=== PATIENT | male | born 1990 | race Caucasian/White ===

== ENCOUNTER 2016-10-06 15:29 | Emergency (ER) | payer SELFPAY ==
[~2016-10-06] VITALS: Ht 177.8 cm; Wt 109.1 kg
[2016-10-06 15:31] VITALS: BP 157/100
== END 2016-10-06 16:30 | disposition left against medical advice (07) ==
LOC: EMS 15:31
DX: Z53.21 Procedure and treatment not carried out due to patient leaving prior to being seen by health care provider (principal)

== ENCOUNTER 2016-10-08 04:38 | Emergency (ER) | payer SELFPAY ==
[~2016-10-08] VITALS: Ht 177.8 cm; Wt 109.0 kg
[2016-10-08] MEDS ORDERED: CYCL10 PO (04:47)
[2016-10-08] MEDS ORDERED: IBUP-1547 PO (04:47)
[2016-10-08] MEDS ORDERED: KETOROLAC TROMETHAMINE 60 MG/2 ML VIAL IM ONE (05:15)
[2016-10-08 05:35] VITALS: BP 137/94
== END 2016-10-08 05:38 | disposition home or self-care (01) ==
LOC: EMS 04:40
DX: M54.40 Lumbago with sciatica, unspecified side (principal); G89.29 Other chronic pain; F17.200 Nicotine dependence, unspecified, uncomplicated; F15.10 Other stimulant abuse, uncomplicated; F17.210 Nicotine dependence, cigarettes, uncomplicated; E78.00 Pure hypercholesterolemia, unspecified; F12.90 Cannabis use, unspecified, uncomplicated; Z79.899 Other long term (current) drug therapy
CPT/HCPCS: 96372; 99283; 99406; J1885

== ENCOUNTER 2019-11-12 12:48 | Emergency (ER) | payer MEDICAID, OTHER ==
[~2019-11-12] VITALS: Ht 170.2 cm; Wt 77.3 kg
[~2019-11-12 12:48] MED LIST: CYCL10 PO; IBUP-2071 PO
[2019-11-12] MEDS ORDERED: KETOROLAC TROMETHAMINE 10 MG TABLET PO ONE (14:30)
[2019-11-12] MEDS ORDERED: METHOCARBAMOL 500 MG TABLET PO ONE (14:30)
[2019-11-12 14:38] VITALS: BP 148/80
== END 2019-11-12 15:17 | disposition home or self-care (01) ==
LOC: EMS 12:57
DX: S13.4XXA Sprain of ligaments of cervical spine, initial encounter (principal); S39.012A Strain of muscle, fascia and tendon of lower back, initial encounter; F17.210 Nicotine dependence, cigarettes, uncomplicated; F19.90 Other psychoactive substance use, unspecified, uncomplicated; E78.00 Pure hypercholesterolemia, unspecified; V49.9XXA Car occupant (driver) (passenger) injured in unspecified traffic accident, initial encounter; Y93.89 Activity, other specified; Y92.89 Other specified places as the place of occurrence of the external cause; Y99.8 Other external cause status

== ENCOUNTER 2019-11-21 03:57 | Emergency (ER) | payer OTHER ==
[~2019-11-21] VITALS: Ht 177.8 cm; Wt 106.8 kg
[2019-11-21] MEDS ORDERED: LIDO700A15 TP (04:11)
[2019-11-21] MEDS ORDERED: CYCL10 PO (04:11)
[2019-11-21] MEDS ORDERED: LIDOCAINE 5% TRANSDERMAL PATCH TD ONE (04:30)
[2019-11-21] MEDS ORDERED: KETOROLAC TROMETHAMINE 30 MG/ML VIAL IM ONE (04:30)
[2019-11-21] MEDS ORDERED: ACETAMINOPHEN 500 MG TABLET PO ONE (04:30)
[2019-11-21 05:41] VITALS: BP 148/88
== END 2019-11-21 06:01 | disposition home or self-care (01) ==
LOC: EMS 03:57
DX: M54.16 Radiculopathy, lumbar region (principal); E78.00 Pure hypercholesterolemia, unspecified; F17.210 Nicotine dependence, cigarettes, uncomplicated; F19.90 Other psychoactive substance use, unspecified, uncomplicated
CPT/HCPCS: 96372; 99283; J1885

== ENCOUNTER 2020-06-03 20:58 | Emergency (ER) | payer OTHER ==
[~2020-06-03] VITALS: Ht 177.8 cm; Wt 111.4 kg
[~2020-06-03 20:58] MED LIST changes: -IBUP-2071 PO; +LIDO700A15 TP
[2020-06-03 21:39] VITALS: BP 146/80
== END 2020-06-03 22:55 | disposition left against medical advice (07) ==
LOC: EMS 20:58
DX: R22.0 Localized swelling, mass and lump, head (principal)

== ENCOUNTER 2020-12-01 15:53 | Emergency (ER) | payer OTHER ==
[~2020-12-01] VITALS: Ht 177.8 cm; Wt 120.5 kg
[2020-12-01 16:47] VITALS: BP 158/98
== END 2020-12-01 17:57 | disposition home or self-care (01) ==
LOC: EMS 15:55
DX: B34.9 Viral infection, unspecified (principal); E78.00 Pure hypercholesterolemia, unspecified; F17.210 Nicotine dependence, cigarettes, uncomplicated; F12.90 Cannabis use, unspecified, uncomplicated; F15.90 Other stimulant use, unspecified, uncomplicated
CPT/HCPCS: 99281; Z7502

== ENCOUNTER 2022-07-01 22:09 | Emergency (ER) | payer OTHER ==
[~2022-07-01] VITALS: Ht 177.8 cm; Wt 113.6 kg
[~2022-07-01 22:09] MED LIST changes: +CYCL-448 PO; -CYCL10 PO
[2022-07-01 22:49] LABS: APPEARANCE,URINE HAZY (CLEAR); BILIRUBIN,URINE NEGATIVE (NEGATIVE); GLUCOSE, URINE (UA) NEGATIVE (NEGATIVE); KETONES,URINE NEGATIVE (NEGATIVE); LEUKOCYTE ESTERASE ,URINE LARGE (NEGATIVE); NITRATE,URINE NEGATIVE (NEGATIVE); OCCULT BLOOD,URINE NEGATIVE (NEGATIVE); PH,URINE 7.5 (5.0-8.0); PROTEIN,URINE NEGATIVE (NEGATIVE); SPECIFIC GRAVITIY, URINE 1.015 (1.003-1.030); UROBILINOGEN,URINE <=1.0 mg/dL (<=1.0)
[2022-07-01 23:18] LABS: BACTERIA,URINE Few /HPF (None Seen); RBC,URINE 0-2 /HPF (0-2); SQUAMOUS EPITHELIAL CELL,UR Few /LPF (None Seen); WBC,URINE 26-50 /HPF (0-5)
[2022-07-01] MEDS ORDERED: HYDROmorphone HCL 2 MG/ML SYRINGE IVP ONE (23:30)
[2022-07-01] MEDS ORDERED: ACETAMINOPHEN 500 MG TABLET PO ONE (23:30)
[2022-07-01] MEDS ORDERED: ONDANSETRON HCL 4 MG/2 ML VIAL IVP ONE (23:30)
[2022-07-01] MEDS ORDERED: SODIUM CHLORIDE 0.9% 1,000 ML IV ONE (23:30)
[2022-07-01 23:43] LABS: BASOPHILS % (AUTO) 0.7 % (0.0-2.0); EOSINOPHILS % (AUTO) 0.7 % (1.0-6.0); HEMATOCRIT 39.9 % (41-53); HEMOGLOBIN 13.3 g/dL (13.5-17.5); LYMPHOCYTES # (AUTO) 1.1 K/uL (1.0-4.8); LYMPHOCYTES % (AUTO) 8.8 % (22.0-44.0); MEAN CORPUSCULAR HEMOGLOBIN 28.6 pg (26.0-34.0); MEAN CORPUSCULAR HGB CONC 33.4 G/dL (31.0-37.0); MEAN CORPUSCULAR VOLUME 86 fL (80-100); MONOCYTES # (AUTO) 0.9 K/uL (0.1-1.0); MONOCYTES % (AUTO) 6.7 % (2.0-9.0); NEUTROPHILS # (AUTO) 10.7 K/uL (1.8-7.7); NEUTROPHILS % (AUTO) 83.1 % (40.0-70.0); PLATELET COUNT (AUTO) 436 K/uL (150-450); RED BLOOD CELL COUNT(AUTO) 4.65 MIL/uL (4.50-5.90); RED CELL DISTRIBUTION WIDTH 13.4 % (11.5-14.5)
[2022-07-01 23:49] LABS: ANION GAP 9 mmol/L (8-16); CALCIUM, TOTAL 8.9 mg/dL (8.8-10.5); CARBON DIOXIDE 29 mmol/L (22-29); CHLORIDE 100 mmol/L (98-107); CREATININE 0.77 mg/dL (0.60-1.30); GLOMERULAR FILTR. RATE CALC > 60 mL/min (>60); GLUCOSE,RANDOM 104 mg/dL (70-110); SODIUM SERUM 138 mmol/L (136-145); UREA NITROGEN, BLOOD 6 mg/dL (7-18)
[2022-07-01 23:55] LABS: ALANINE AMINOTRANSFERASE 33 U/L (12-78); ALBUMIN 3.2 g/dL (3.4-5.0); ALKALINE PHOSPHATASE 93 U/L (46-116); ASPARTATE AMINOTRANSFERASE 20 U/L (15-37); BILIRUBIN,TOTAL 0.3 mg/dL (0.1-1.0); LIPASE 80 U/L (73-393); TOTAL PROTEIN, SERUM 7.8 g/dL (6.4-8.2)
[2022-07-01 23:57] LABS: LACTIC ACID 0.6 mmol/L (0.4-2.0)
[2022-07-02] MEDS ORDERED: HYDROCODONE/ACETAMINOPHEN 5-325 MG TABLET PO ONE (00:30)
[2022-07-02] MEDS ORDERED: LIDOCAINE/PF 1% 2 ML VIAL IM ONE (00:30)
[2022-07-02] MEDS ORDERED: DOXYCYCLINE HYCLATE 100 MG TABLET PO ONE (00:30)
[2022-07-02] MEDS ORDERED: CefTRIAXone SODIUM 1 GM/VIAL IM ONE (00:30)
[2022-07-02] MEDS ORDERED: CefTRIAXone SODIUM 2 GM in DEXTROSE 5%-WATER 50 ML IV ONE (00:30)
[2022-07-02 01:07] LABS: AMPHET/METH SCREEN,URINE POSITIVE (NEGATIVE); BARBITURATE SCREEN, URINE NEGATIVE (NEGATIVE); BENZODIAZEPINES SCREEN,URINE NEGATIVE (NEGATIVE); CANNABINOID SCREEN,URINE POSITIVE (NEGATIVE); COCAINE SCREEN,URINE NEGATIVE (NEGATIVE); METHADONE SCREEN, URINE NEGATIVE (NEGATIVE); OPIATE SCREEN,URINE NEGATIVE (NEGATIVE); PHENCYCLIDINE SCREEN,URINE NEGATIVE (NEGATIVE)
[2022-07-02] MEDS ORDERED: CEPH-558 PO (01:50)
[2022-07-02] MEDS ORDERED: OXYC-38 PO (01:50)
[2022-07-02] MEDS ORDERED: DOXY-354 PO (01:50)
[2022-07-02] MEDS ORDERED: IBUP-1554 PO (01:53)
[2022-07-02 02:00] VITALS: BP 135/79
== END 2022-07-02 02:08 | disposition home or self-care (01) ==
LOC: EMS 22:09
DX: N45.1 Epididymitis (principal); F15.10 Other stimulant abuse, uncomplicated; E78.00 Pure hypercholesterolemia, unspecified; F17.210 Nicotine dependence, cigarettes, uncomplicated; F12.90 Cannabis use, unspecified, uncomplicated
CPT/HCPCS: 99285; 80053; 83605; 83690; 85025; 87040; 36415; 87086; 87186; 87491; 87591; 81001; 76870; 96372; 80307 ×2; G0480; J0696; J3490; J7060

== ENCOUNTER 2022-12-01 22:25 | Emergency (ER) | payer OTHER ==
[~2022-12-01] VITALS: Ht 177.8 cm; Wt 109.1 kg
[~2022-12-01 22:25] MED LIST changes: +CEPH-558 PO; -CYCL-448 PO; +DOXY-354 PO; +IBUP-1554 PO; -LIDO700A15 TP; +OXYC-38 PO
[2022-12-01 22:54] VITALS: TEMP 98.3
[2022-12-01 23:37] VITALS: BP 149/90; PULSE 78; RESP 16
[2022-12-02] MEDS ORDERED: IBUPROFEN 800 MG TABLET PO ONE
[2022-12-02] MEDS ORDERED: HYDROCODONE/ACETAMINOPHEN 10-325 MG TABLET PO ONE
[2022-12-02] MEDS ORDERED: AMOXICILLIN TRIHYDRATE 250 MG CAPSULE PO ONE
[2022-12-02] MEDS ORDERED: AMOX500C2 PO (00:01)
[2022-12-02] MEDS ORDERED: IBUP-1554 PO (00:01)
[2022-12-02] MEDS ORDERED: OXYC-38 PO (00:01)
== END 2022-12-02 00:22 | disposition home or self-care (01) ==
LOC: EMS 22:26
DX: K08.89 Other specified disorders of teeth and supporting structures (principal); E78.00 Pure hypercholesterolemia, unspecified; F12.90 Cannabis use, unspecified, uncomplicated; F15.90 Other stimulant use, unspecified, uncomplicated
CPT/HCPCS: 99284; Z7502; Z7610

== ENCOUNTER 2023-04-05 19:30 | Emergency (ER) | payer OTHER ==
[~2023-04-05] VITALS: Ht 177.8 cm; Wt 109.1 kg
[~2023-04-05 19:30] MED LIST changes: +AMOX500C2 PO
[2023-04-05 20:19] VITALS: BP 135/76; PULSE 110; RESP 16; TEMP 99.5
== END 2023-04-05 20:30 | disposition left against medical advice (07) ==
LOC: EMS 19:31
DX: H92.02 Otalgia, left ear (principal); J02.9 Acute pharyngitis, unspecified; R50.9 Fever, unspecified; Z53.21 Procedure and treatment not carried out due to patient leaving prior to being seen by health care provider
CPT/HCPCS: 87430; 99281; Z7502

== ENCOUNTER 2023-04-29 23:27 | Emergency (ER) | payer OTHER ==
[~2023-04-29] VITALS: Ht 177.8 cm; Wt 108.0 kg
[2023-04-29 23:39] VITALS: BP 155/82; PULSE 115; RESP 18; TEMP 98
[2023-04-30] MEDS: SULFAMETHOX/TRIMETH DS 800-160 MG/TABLET PO ONE (00:50)
[2023-04-30] MEDS: CEPHALEXIN MONOHYDRATE 500 MG CAPSULE PO ONE (00:50)
[2023-04-30] MEDS: LIDOCAINE 1%/EPI 1:200,000/PF 30 ML VIAL IM ONE (00:50)
[2023-04-30] MEDS ORDERED: CEPH-558 PO (01:08)
[2023-04-30] MEDS ORDERED: BACTDSB PO (01:08)
== END 2023-04-30 01:39 | disposition home or self-care (01) ==
LOC: EMS 23:29
DX: L02.31 Cutaneous abscess of buttock (principal); E78.00 Pure hypercholesterolemia, unspecified; G89.29 Other chronic pain; M54.9 Dorsalgia, unspecified; F12.90 Cannabis use, unspecified, uncomplicated; F15.90 Other stimulant use, unspecified, uncomplicated; F17.210 Nicotine dependence, cigarettes, uncomplicated
CPT/HCPCS: 99283; 10060; 87205; 87070; J3490; 87186